=== PATIENT | male | born 1945 | race Caucasian/White ===

== ENCOUNTER 2018-07-23 10:56 | Inpatient (IN) | payer MEDICARE ==
[2018-07-23 11:45] LABS: Bilirubin Negative (Negative); Blood, Urine Negative (Negative); Glucose, Urine (Dipstick) Negative (Negative); Leukocyte Negative (Negative); Nitrite Negative (Negative); Protein, Urine (Dipstick) Negative (Neg-Trace); Urobilinogen 0.2 mg/dL (0.2-1.0)
[2018-07-23 11:47] LABS: Clarity CLEAR (Clear)
[2018-07-23] MEDS ORDERED: Aspirin Chewable 81 MG TAB ONE (12:18)
[2018-07-23] MEDS ORDERED: Nitroglycerin 2% Ointment 1 INCH/1 GM Packet ONE (12:18)
--- NOTE | 2018-07-23 14:03 | PDOC.FPRHP ---
- History of Present Illness Chief Complaint: SOB History of Present Illness: Mr Vaughn is a 73yo male presenting from [facility] with pmh of CAD s/p stent placement on Plavix, HFrEF, BPH with self caths presenting with SOB for the last week. For the past 2 days has had orthopnea and paroxysmal nocturnal dyspnea. Denies diaphoresis. Has had SOB walking up the stairs for the past week and Saturday could hardly make it down the hallway because he was so exhausted. Occasionally has left sided chest pain 1-2/. Denies CP with exertion. Has had good med compliance. 2 days ago completed 7 day course of antibiotics for sinusitis. Has been drinking no more than six 8oz glasses per day. Has been watching sodium intake. Reports weight gain since his last hospitalization. Denies fevers/chills, palpitations, wheezing. CT in [place] ruled out PE, concern for 1.1x2.1 cm mass in [place]. CXR here showed cardiomegaly and interstitial edema and maybe small pleural effusions. BNP elevated to 2600. Pt given lasix. Patient required 2L BNC here. On RA, hypoxic in upper 80s. Hgb 13.1 WBC 10.0 Plt 211 BUN 20 Cr 1.2 GFR 63 UA negative - Allergies/Adverse Reactions Allergies Allergy/AdvReac Type Severity Reaction Status Date / Time No Known Allergies Allergy Unverified 06/21/18 10:18 - Home Medications Medication Instructions Recorded Confirmed Type Lisinopril 20 mg PO BID 06/21/18 07/23/18 History Aspirin Chewable [Aspirin Chewable 81 mg PO DAILY tab 06/30/18 07/23/18 Rx Tablet] Atorvastatin Calcium [Lipitor] 40 mg PO HS #30 tab 06/30/18 07/23/18 Rx Carvedilol [Coreg] 12.5 mg PO BID-WM #120 tab 06/30/18 07/23/18 Rx Clopidogrel Bisulfate [Plavix] 75 mg PO DAILY #30 tab 06/30/18 07/23/18 Rx Finasteride [Proscar] 5 mg PO DAILY #30 tab 06/30/18 07/23/18 Rx Furosemide [Lasix] 20 mg PO DAILY #30 tab 06/30/18 07/23/18 Rx Tamsulosin HCl [Flomax] 0.4 mg PO HS #30 cap 06/30/18 07/23/18 Rx Amiodarone [Cordarone] 200 mg PO BID #60 tab 07/01/18 07/23/18 Rx - History PMHx: BPH s/p transurethral microwave thermotherapy surgery (patient self caths) , hx hematuria,, Iatrogenic perforation of rectum, A.fib with RVR, cardiomyopathy dx in 2012, CHF diagnosed Jun 2017, hx non-sustained Vtach, AAA, HLD PSHx: Surgery on Prostate (july 2017), heart ablation in 2012, 3 vessel coronary s/p bare metal stents Jun 2017 FHx: Insignificant Social: Smoked 25 yrs 2ppd. Quit in 1990, Denies any alcohol use, Denies any illicit drug use PCP - Dr. Jason in [place], [place] Transitions Manager- Dr Corado Urologist- Leela - Review of Systems General: reports: weight/appetite/sleep changes (has had wt gain.), fatigue. denies: fever/chills, night sweats Eyes: denies: eye pain, vision changes ENT: reports: rhinorrhea. denies: nasal congestion Respiratory: reports: cough, shortness of breath, exercise intolerance Cardiovascular: reports: chest pain, edema, paroxysmal nocturnal dyspnea, orthopnea. denies: palpitation Gastrointestinal: denies: nausea, vomiting, diarrhea, constipation, abdominal pain, GI bleeding Genitourinary: denies: polyuria, other (denies hematuria) Skin: denies: rashes, lesions Neurological: denies: numbness, weakness - Vital signs BP: 147/117 HR: 75 RR: 23 Tmax: 98.0 Pox: 94% on 2L Wt: 82.1 kg - Physical Exam Constitutional: NAD, awake, alert and oriented, well developed HEENT: normocephalic and atraumatic, PERRLA, EOMI, MMM, oropharynx clear Neck: supple, no LAD Heart: RRR, normal S1/S2, no murmurs/rubs/gallops -Lungs: fine crackles bases bilat, upper lungs BCTA, no wheezing Abdomen: soft, non-tender, bowel sounds present, no masses/distention, no hernias Musculoskeletal: normal structure, normal tone, ROM grossly normal Neurological: no focal deficit Skin: no rash/lesions, good turgor, capillary refill <2 seconds, no jaundice Heme/Lymphatic: no unusual bruising or bleeding, no purpura Psychiatric: normal mood and affect, good judgment and insight, intact recent and remote memory FMR H&P: Results - Labs Lab results: Urine Ketones Negative mg/dL (Negative) 07/23/18 11:20 Urine Blood Negative (Negative) 07/23/18 11:20 Urine Nitrite Negative (Negative) 07/23/18 11:20 Ur Leukocyte Esterase Negative (Negative) 07/23/18 11:20 - EKG Interpretation EKG: Left anterior fascicular block - Radiology Interpretation CT scan - chest Status: report reviewed by me Additional comment: CT chest (outside hospital) : soft tissue density in left upper lobe posterolateral aspect of the lingula. Measures 1.1x2.1 cm. May represent an area of scar, although mass including malignancy cannot be excluded. Correlate with previous CT chest images or with PET scanning. Also area of increase density in the right lower lobe possible representing area of right lower lobe scar. FMR H&P: A/P - Problem List (1) Acute respiratory failure with hypoxia Current Visit: Yes Status: Acute Code(s): J96.01 - ACUTE RESPIRATORY FAILURE WITH HYPOXIA (2) Acute exacerbation of CHF (congestive heart failure) Current Visit: Yes Status: Acute Code(s): I50.9 - HEART FAILURE, UNSPECIFIED (3) CHF (congestive heart failure) Current Visit: Yes Status: Chronic Code(s): I50.9 - HEART FAILURE, UNSPECIFIED (4) Lung mass Current Visit: Yes Status: Acute Code(s): R91.8 - OTHER NONSPECIFIC ABNORMAL FINDING OF LUNG FIELD (5) Hx of hematuria Current Visit: Yes Status: Chronic Code(s): Z87.448 - PERSONAL HISTORY OF OTHER DISEASES OF URINARY SYSTEM (6) Atrial fibrillation with RVR Current Visit: No Status: Chronic Code(s): I48.91 - UNSPECIFIED ATRIAL FIBRILLATION (7) BPH (benign prostatic hyperplasia) Current Visit: No Status: Chronic Code(s): N40.0 - BENIGN PROSTATIC HYPERPLASIA WITHOUT LOWER URINRY TRACT SYMP (8) Hx of cardiomyopathy Current Visit: No Status: Chronic Code(s): Z86.79 - PERSONAL HISTORY OF OTHER DISEASES OF THE CIRCULATORY SYSTEM (9) Rectal perforation Current Visit: No Status: Chronic Code(s): K63.1 - PERFORATION OF INTESTINE (NONTRAUMATIC) (10) Ventricular tachycardia Current Visit: No Status: Chronic Code(s): I47.2 - VENTRICULAR TACHYCARDIA (11) CAD (coronary artery disease) Current Visit: No Status: Chronic Code(s): I25.10 - ATHSCL HEART DISEASE OF [place] CORONARY ARTERY W/O ANG PCTRS - Plan Acute Hypoxic respiratory failure 2/2 Acute CHF exacerbation -pt presented with SOB and hypoxia, transferred from [facility] ER -CXR showed pulm congestion and cardiomegaly -Given lasix 40 mg IV -CTA ruled out PE, concern for mass in lung -EKG here stable from last visit -Dr. Corado (cards) consulted from ED, appreciate recommendations -Continue lasix BID -Daily weights, strict I/os, fluid restriction -AM CBC/BMP -Echo 06/22/18 EF 35-40% -Increase home lasix to 40 mg PO daily on discharge 3 vessel CAD s/p stent -bare metal stent placed Jun 27 2018 -follows with Dr. Corado -on plavix (until 07/25) and aspirin Concern for lung mass -CT chest ([place] ED) showed soft tissue density in left upper lobe posterolateral aspect of the lingula. -Measures 1.1x2.1 cm. May represent an area of scar, although mass including malignancy cannot be excluded. -Recommend outpatient PET A.fib with RVR -s/p ablation in 2012, pt had Afib last hospitalization with planned cardioversion that was postponed 2/2 hematuria -anticoagulation held for hematuria, rate controlled -continue coreg Nonsustained Vtach -continue amio hx cardiomyopathy HLD -on statin BPH s/p transurethral microwave thermotherapy surgery -patient self caths -[place] in place -continue home flomax Hx hematuria -reports no hematuria currently hx Iatrogenic perforation of rectum HTN -continue home meds Diet: HH, fluid restrict 1800 ml/day DVT ppx: lovenox GI ppx: none Code status: full PCP - Dr. Jason in [place], [place] Transitions Manager- Dr Corado Urologist- Leela FMR H&P: Upper Level - Pertinent history 73M presenting from outside hospital with worsening SOB and RICH for the last several days. He was recently admitted for CP and had PCI with bare metal stent in June. He was diagnosed with new onset HFrEF during last admission and discharged on all appropriate medications. This stay was complicated by hematuria, which effected his antiplatelet and anticoagulation regimen. Since discharge, he has not had any hematuria. He has not f/u with Cardiology or Urology yet. He needs cardioversion for his a-fib and green light vaporization for his BPH. He endorses taking ASA and Plavix as prescribed. He endorses being very winded with exertion along with some mild bilateral lower extremity swelling. Symptoms are also worsened with lying flat. - Pertinent findings 98.3F 57 bpm 92% on 2L 134/85 mmHg Gen: A&Ox3 CV: RRR; no murmurs Pulm: CTA-B Abd: soft; nontender troponin negative x 2 BUN/Cr: 30/1.2 D-Dimer: 1.68 BNP: 2680 TSH: 5.45 CXR: pulmonary vascular congestion EKG: NSR with bifascicular block; unchanged from previous visits UA: wnl CTA: no PE - Plan Date/Time: 07/23/18 1403 I, Oniel Grace, have evaluated this patient and agree with findings/plan as outlined by merchandising internship resident. Pertinent changes/additions are listed here. HFrEF exacerbation: CXR, BNP, and clinical picture consistent with CHF exacerbation. TTE done last month shows an EF of 35-40%. Continue lasix 20mg IV BID and monitor I/O's. He is s/p 40 mg IV at outside facility and is greatly improved. CTA chest negative CAD s/p PCI: continue ASA and Plavix. Cardiology consulted from ED. Hx of hematuria: will monitor for recurrence of symptom and consult Urology as needed. Hx of a-fib: scheduled to undergo OP cardioversion with Dr. Corado. He has been consulted to evaluate. Patient is in NSR at this time with no active CP. BPH: patient self-caths PRN. Continue home medications.
[2018-07-23 15:05] LABS: Troponin I 0.013 ng/mL (< 0.028)
[2018-07-23 16:15] VITALS: BMI 26.3
--- NOTE | 2018-07-23 17:50 | HP ---
HISTORY OF PRESENT ILLNESS: I have examined the patient. I have discussed the case with Dr. Lillian Dominguez, and agree with her assessment and plan. Briefly, Mr. Vaughn is a very pleasant 73-year-old white male patient, who is status post stent placement several weeks ago for coronary artery disease. He states for at least the last 5 to 7 days, he has noticed increased shortness of breath and increased weight gain of 8 pounds. He became short of breath to the point that he presented to a [facility] ER and was subsequently transferred here with acute pulmonary edema. He was given intravenous Lasix in our ER and greatly improved. By the time I saw him, he was much more comfortable and much less short of breath. He denied any chest pain, but was concerned about his 8 pounds weight gain. PHYSICAL EXAMINATION: VITAL SIGNS: His temperature is 98.3, his pulse rate is 60 and regular, respirations are 16. His O2 saturations on 2 L, 92. His blood pressure is 134/85. GENERAL: He is a very pleasant, alert man in no distress. He is oriented x3. EAR, NOSE, AND THROAT: He has moist mucous membranes. No erythema or exudate noted in throat. NECK: Supple with no JVD. CARDIAC: His heart rhythm is irregularly irregular. No gallop or murmur noted. LUNGS: Clear but diminished without rales or wheezes. He is in no distress. He is not using accessory muscles. ABDOMEN: Flat and soft without guarding, rebound, or rigidity. EXTREMITIES: Trace edema. NEUROLOGICAL: No focal deficits. LABORATORY DATA: Pending. ASSESSMENT: 1. Mild pulmonary edema, currently resolved. 2. Coronary artery disease. PLAN: The patient will be admitted. We will adjust his diuretics. Monitor his electrolytes. Monitor his troponin levels and proceed accordingly. Job ID: [id number]
[2018-07-23 18:04] LABS: Troponin I Less than 0.010 ng/mL (< 0.028)
[2018-07-23] MEDS ORDERED: Furosemide 20 MG/2 ML VIAL SLOW IVP SCH (19:45)
[2018-07-23] MEDS ORDERED: Carvedilol 6.25 MG TAB PO SCH (19:45)
--- NOTE | 2018-07-23 20:20 | CON ---
DATE OF CONSULTATION: 07/23/2018 REASON FOR CONSULTATION: Heart failure. PRIMARY SENIOR HARDWARE ENGINEER: Evin Corado MD. HISTORY OF PRESENT ILLNESS: Mr. Vaughn is a pleasant 73-year-old white gentleman, who comes to the hospital for increased shortness of breath. He has a history of ischemic cardiomyopathy with an EF of about 35% to 40%. He had a heart catheterization in June of this year. At which point, he had a stent placed to his OM, and he was placed on optimal medical therapy at that time. His LV function on echo was about 35% to 40% and he was discharge home on heart failure medications. He noticed worsening of his shortness of breath in the last few days, and so he decided to come in for evaluation and was found to be in CHF exacerbation. IV Lasix has already been started, and he states he already feels a little bit better. He does not know how much he has urinated as he has a Wells catheter in, but he had gained about 8 pounds and he already feels better. PAST MEDICAL HISTORY: 1. BPH. 2. Atrial fibrillation, chronic. 3. History of dilated cardiomyopathy since 2012. 4. Nonsustained ventricular tachycardia. 5. Abdominal aortic aneurysm. 6. Hyperlipidemia. PAST SURGICAL HISTORY: 1. Prostate surgery in July of last year. 2. Atrial fibrillation ablation in 2012. 3. Heart catheterization and stenting recently. 4. Status post transurethral microwave thermotherapy. SOCIAL HISTORY: Quit smoking in 1990. Denies alcohol or drugs. OUTPATIENT MEDICATIONS: Include; 1. Lisinopril 20 mg b.i.d. 2. Aspirin 81 a day. 3. Atorvastatin 40 mg at bedtime. 4. Carvedilol 12.5 b.i.d. 5. Plavix 75 mg a day. 6. Finasteride 5 mg a day. 7. Furosemide 20 mg a day. 8. Tamsulosin 0.4 daily. 9. Amiodarone 200 mg b.i.d. ALLERGIES: NO KNOWN DRUG ALLERGIES. REVIEW OF SYSTEMS: 12-point review of systems was done and was all negative unless stated in the history of present illness. PHYSICAL EXAMINATION: VITAL SIGNS: Temperature 98.3, pulse 57, respiratory rate 16, saturating 92% on 2 L nasal cannula, and blood pressure 134/85. GENERAL: Awake, alert, and oriented x3. No distress. HEENT: Normocephalic and atraumatic. NECK: Supple. LUNGS: Lungs have mild crackles at the bases. CARDIOVASCULAR: S1 and S2. No S3 or S4. There is a grade 2/6 systolic murmur at the right upper sternal border. ABDOMEN: Soft. EXTREMITIES: 1+ edema. SKIN: Warm and dry. LABORATORY DATA: Laboratory work was reviewed. Troponin is undetectable. UA is unremarkable. BNP was 2600. DIAGNOSTIC DATA: CT of the chest done in [place], [place], showed no evidence of pulmonary embolus, and there is 1.1 x 2.1 mass in the left upper lung. ASSESSMENT AND PLAN: 1. Acute on chronic systolic heart failure. 2. Lung mass, per Primary Team. 3. History of hematuria, resolved. 4. Atrial fibrillation with rapid ventricular response. 5. Coronary artery disease, stable. PLAN: 1. Heart rate in the 50s to 60s. At this time, would continue home dose of amiodarone and Eliquis. 2. Continue Plavix and low-dose aspirin. Job ID: [id number]
[2018-07-23] MEDS: Tamsulosin HCl 0.4 MG CAP PO SCH (21:16)
[2018-07-23] MEDS: Atorvastatin Calcium 40 MG TAB PO SCH (21:17)
[2018-07-23] MEDS: Lisinopril 20 MG TAB PO SCH (21:18)
[2018-07-23] MEDS: Amiodarone 200 MG TAB PO SCH (21:18)
[2018-07-24 05:29] LABS: #Basophils 0.1 thou/uL (0.0-0.2); #Eosinphils 0.2 thou/uL (0.0-0.7); #Lymphocytes 0.9 thou/uL (1.20-3.40); #Monocytes 0.7 thou/uL (0.11-0.59); #Neutrophils 5.6 thou/uL (1.40-6.50); %Basophils 0.9 % (0.0-1.0); %Lymphocytes 12.2 % (21.0-51.0); %Monocytes 9.8 % (0.0-10.0); %Neutrophils 74.1 % (42.0-75.0); Hemoglobin 12.2 g/dL (14.0-18.0); Mean Corpuscular HGB CONC 31.6 g/dL (32.0-36.0); Mean Corpuscular Hemoglobin 29.4 pg (27.0-31.0); Mean Corpuscular Volume 93.1 fL (78.0-98.0); Mean Platelet Volume 8.8 fL (7.4-10.4); Platelet Count 173 thou/uL (130-400); RBC Distribution Width 13.6 % (11.5-14.5); Red Blood Cell (RBC) Count 4.15 mill/uL (4.70-6.10); White Blood Cell (WBC) Count 7.5 thou/uL (4.8-10.8)
[2018-07-24 05:51] LABS: Anion Gap 11 mmol/L (10-20); BUN (Urea Nitrogen) 27 mg/dL (8.4-25.7); Calc. Creatinine Clearance 77 mL/min (70-130); Calcium 8.3 mg/dL (7.8-10.44); Carbon Dioxide 29 mmol/L (23-31); Chloride 107 mmol/L (98-107); Estimated GFR-MDRD 72; Glucose 85 mg/dL (83-110); Sodium 143 mmol/L (136-145)
[2018-07-24] MEDS ORDERED: Furosemide 20 MG/2 ML VIAL SLOW IVP SCH (06:00)
--- NOTE | 2018-07-24 06:04 | PDOC.FM ---
- Subjective Subjective: Reports he had a coughing spell last night, that improved after dislodging some mucous. SOB is improved this AM. - Objective Vital Signs & Weight: Vital Signs (12 hours) Temp Pulse Resp BP BP Pulse Ox 07/24/18 04:25 97.6 F 91 14 125/83 96 07/23/18 21:18 140/94 H 07/23/18 21:17 140/94 H 07/23/18 19:31 97.4 F L 96 16 140/94 H 95 Weight Weight 83.178 kg Result Diagrams: 07/24/18 05:19 07/24/18 05:19 Phys Exam - Physical Examination Constitutional: NAD HEENT: moist MMs Neck: no nodes, supple Respiratory: no rales, no rhonchi Mild expiratory wheeze at bases with coughing Cardiovascular: no significant murmur Irregularly irregular rhythm Gastrointestinal: soft, non-tender, no distention, positive bowel sounds Musculoskeletal: no edema, pulses present Neurological: non-focal, moves all 4 limbs Psychiatric: normal affect, A&O x 3 Skin: normal turgor, cap refill <2 seconds Dx/Plan (1) Acute respiratory failure with hypoxia Code(s): J96.01 - ACUTE RESPIRATORY FAILURE WITH HYPOXIA Status: Acute (2) Acute exacerbation of CHF (congestive heart failure) Code(s): I50.9 - HEART FAILURE, UNSPECIFIED Status: Acute (3) CHF (congestive heart failure) Code(s): I50.9 - HEART FAILURE, UNSPECIFIED Status: Chronic (4) Lung mass Code(s): R91.8 - OTHER NONSPECIFIC ABNORMAL FINDING OF LUNG FIELD Status: Acute (5) Hx of hematuria Code(s): Z87.448 - PERSONAL HISTORY OF OTHER DISEASES OF URINARY SYSTEM Status : Chronic (6) Atrial fibrillation with RVR Code(s): I48.91 - UNSPECIFIED ATRIAL FIBRILLATION Status: Chronic (7) BPH (benign prostatic hyperplasia) Code(s): N40.0 - BENIGN PROSTATIC HYPERPLASIA WITHOUT LOWER URINRY TRACT SYMP Status: Chronic (8) Hx of cardiomyopathy Code(s): Z86.79 - PERSONAL HISTORY OF OTHER DISEASES OF THE CIRCULATORY SYSTEM Status: Chronic (9) Rectal perforation Code(s): K63.1 - PERFORATION OF INTESTINE (NONTRAUMATIC) Status: Chronic (10) Ventricular tachycardia Code(s): I47.2 - VENTRICULAR TACHYCARDIA Status: Chronic (11) CAD (coronary artery disease) Code(s): I25.10 - ATHSCL HEART DISEASE OF [place] CORONARY ARTERY W/O ANG PCTRS Status: Chronic - Plan Plan: Acute Hypoxic respiratory failure 2/2 Acute CHF exacerbation -pt presented with SOB and hypoxia, transferred from [facility] ER -CXR showed pulm congestion and cardiomegaly -Given lasix 40 mg IV -CTA ruled out PE, concern for mass in lung -EKG here stable from last visit -Dr. Corado (cards) consulted from ED, appreciate recommendations -Continue lasix BID -Daily weights, strict I/os, fluid restriction -AM CBC/BMP -Echo 06/22/18 EF 35-40% -Increase home lasix to 40 mg PO daily on discharge 3 vessel CAD s/p stent -bare metal stent placed Jun 27 2018 -follows with Dr. Corado -continue plavix and aspirin Concern for lung mass -CT chest ([place] ED) showed soft tissue density in left upper lobe posterolateral aspect of the lingula. -Measures 1.1x2.1 cm. May represent an area of scar, although mass including malignancy cannot be excluded. -Recommend outpatient PET A.fib with RVR -s/p ablation in 2012, pt had Afib last hospitalization with planned cardioversion that was postponed 2/2 hematuria -anticoagulation held for hematuria, rate controlled -continue coreg Nonsustained Vtach -continue amio hx cardiomyopathy HLD -on statin BPH s/p transurethral microwave thermotherapy surgery -patient self caths -[place] in place -continue home flomax Hx hematuria -reports no hematuria currently hx Iatrogenic perforation of rectum HTN -continue home meds Concern for COPD - wheezing with cough on exam today - CXR showed concern for COPD - Recommend outpatient spirometry Diet: HH, fluid restrict 1800 ml/day DVT ppx: lovenox GI ppx: none Code status: full PCP - Dr. Jason in [place], [place] Foreign Broadcast Specialist- Dr Corado Urologist- Leela
[2018-07-24] MEDS: Enoxaparin Sodium 40 MG/0.4 ML SYRINGE SC SCH (09:14)
[2018-07-24] MEDS: Aspirin Chewable 81 MG TAB PO SCH (09:14)
[2018-07-24] MEDS: Carvedilol 6.25 MG TAB PO SCH ×2 (09:15→16:15)
[2018-07-24] MEDS: Clopidogrel Bisulfate 75 MG TAB PO SCH (09:15)
[2018-07-24] MEDS: Furosemide 20 MG TAB PO SCH ×2 (09:15→14:47)
[2018-07-24] MEDS: Lisinopril 20 MG TAB PO SCH ×2 (09:16→20:57)
[2018-07-24] MEDS: Amiodarone 200 MG TAB PO SCH ×2 (09:16→20:56)
[2018-07-24] MEDS: Finasteride 5 MG TAB PO SCH (09:16)
--- NOTE | 2018-07-24 16:43 | PRG ---
DATE OF SERVICE: Mr. Vaughn continues to look and feel much better this morning. Lungs sound clear. He was seen in consultation by Dr. Medeiros of the Cardiology Service and we appreciate his input. He is currently recommending that we just continue his current management with amiodarone, Eliquis, Plavix, and low-dose aspirin. We already increased his Lasix to 40 mg twice daily and this will be maintained upon discharge. His labs show a hemoglobin of 12.2 and hematocrit 38.6. His serum potassium is 4.0, and this is on we should maintain throughout his care. His troponins are all negative. Job ID: [id number] MTDD
--- NOTE | 2018-07-24 18:18 | EKG ---
Test Reason : ROUTINE Blood Pressure : / mmHG Vent. Rate : 062 BPM Atrial Rate : 054 BPM P-R Int : 000 ms QRS Dur : 152 ms QT Int : 504 ms P-R-T Axes : 000 -84 -68 degrees QTc Int : 511 ms undetermined rhythm possible junctional with echo beats in a bigeminal pattern Right bundle branch block Left anterior fascicular block Bifascicular block T wave abnormality, consider lateral ischemia or digitalis effect Abnormal ECG When compared with ECG of 23-JUL-2018 11:03, (Unconfirmed) Atrial fibrillation has replaced Sinus rhythm Vent. rate has decreased BY 31 BPM T wave inversion now evident in Lateral leads QT has shortened Confirmed by DR. Robby KENT ([id number]) on 07/24/2018 6:18:14 PM Referred By: Confirmed By:DR. Robby KENT
[2018-07-24] MEDS: Tamsulosin HCl 0.4 MG CAP PO SCH (20:56)
[2018-07-24] MEDS: Atorvastatin Calcium 40 MG TAB PO SCH (20:56)
[2018-07-25 05:21] LABS: #Eosinphils 0.2 thou/uL (0.0-0.7); #Lymphocytes 1.2 thou/uL (1.20-3.40); #Monocytes 0.8 thou/uL (0.11-0.59); #Neutrophils 5.8 thou/uL (1.40-6.50); %Basophils 0.2 % (0.0-1.0); %Eosinophils 3.1 % (0.0-10.0); %Lymphocytes 14.8 % (21.0-51.0); %Monocytes 9.6 % (0.0-10.0); %Neutrophils 72.3 % (42.0-75.0); Hemoglobin 13.1 g/dL (14.0-18.0); Mean Corpuscular HGB CONC 31.4 g/dL (32.0-36.0); Mean Corpuscular Hemoglobin 28.9 pg (27.0-31.0); Platelet Count 177 thou/uL (130-400); RBC Distribution Width 13.6 % (11.5-14.5); Red Blood Cell (RBC) Count 4.55 mill/uL (4.70-6.10); White Blood Cell (WBC) Count 8.1 thou/uL (4.8-10.8)
[2018-07-25 05:39] LABS: Anion Gap 12 mmol/L (10-20); BUN (Urea Nitrogen) 25 mg/dL (8.4-25.7); Calc. Creatinine Clearance 84 mL/min (70-130); Calcium 8.4 mg/dL (7.8-10.44); Carbon Dioxide 27 mmol/L (23-31); Chloride 105 mmol/L (98-107); Estimated GFR-MDRD 82; Glucose 89 mg/dL (83-110); Potassium 3.4 mmol/L (3.5-5.1); Sodium 141 mmol/L (136-145)
[2018-07-25] MEDS ORDERED: Diabetic Tussin 200 MG/10 ML UDCUP PO PRN (06:35)
--- NOTE | 2018-07-25 06:36 | PDOC.FM ---
- Subjective Subjective: Pt feels well this AM, says cough has improved. Overall feeling better and now on RA. - Objective Vital Signs & Weight: Vital Signs (12 hours) Temp Pulse Resp BP BP Pulse Ox 07/25/18 04:05 98.2 F 84 17 142/94 H 91 L 07/24/18 20:57 125/67 07/24/18 20:20 91 L 07/24/18 19:15 98.2 F 85 16 125/67 91 L Weight Weight 80.876 kg I&O: 07/23/18 07/24/18 07/25/18 06:59 06:59 06:59 Intake Total 240 1370 Output Total 1350 2170 Balance -1110 -800 Result Diagrams: 07/25/18 04:52 07/25/18 04:52 Phys Exam - Physical Examination Constitutional: NAD Respiratory: no rhonchi +wheezing, no rhonchi Cardiovascular: RRR, no significant murmur Gastrointestinal: soft, non-tender, no distention Musculoskeletal: no edema, pulses present Neurological: non-focal, moves all 4 limbs Psychiatric: normal affect, A&O x 3 Skin: normal turgor, cap refill <2 seconds Dx/Plan (1) Acute respiratory failure with hypoxia Code(s): J96.01 - ACUTE RESPIRATORY FAILURE WITH HYPOXIA Status: Acute (2) Acute exacerbation of CHF (congestive heart failure) Code(s): I50.9 - HEART FAILURE, UNSPECIFIED Status: Acute (3) CHF (congestive heart failure) Code(s): I50.9 - HEART FAILURE, UNSPECIFIED Status: Chronic (4) Lung mass Code(s): R91.8 - OTHER NONSPECIFIC ABNORMAL FINDING OF LUNG FIELD Status: Acute (5) Hx of hematuria Code(s): Z87.448 - PERSONAL HISTORY OF OTHER DISEASES OF URINARY SYSTEM Status : Chronic (6) Atrial fibrillation with RVR Code(s): I48.91 - UNSPECIFIED ATRIAL FIBRILLATION Status: Chronic (7) BPH (benign prostatic hyperplasia) Code(s): N40.0 - BENIGN PROSTATIC HYPERPLASIA WITHOUT LOWER URINRY TRACT SYMP Status: Chronic (8) Hx of cardiomyopathy Code(s): Z86.79 - PERSONAL HISTORY OF OTHER DISEASES OF THE CIRCULATORY SYSTEM Status: Chronic (9) Rectal perforation Code(s): K63.1 - PERFORATION OF INTESTINE (NONTRAUMATIC) Status: Chronic (10) Ventricular tachycardia Code(s): I47.2 - VENTRICULAR TACHYCARDIA Status: Chronic (11) CAD (coronary artery disease) Code(s): I25.10 - ATHSCL HEART DISEASE OF [place] CORONARY ARTERY W/O ANG PCTRS Status: Chronic - Plan Plan: Acute Hypoxic respiratory failure 2/2 Acute CHF exacerbation -pt presented with SOB and hypoxia, transferred from [facility] ER -CXR showed pulm congestion and cardiomegaly -CTA ruled out PE, concern for mass in lung -EKG here stable from last visit -Dr. Corado (cards) consulted from ED, appreciate recommendations -Continue lasix BID -Daily weights, strict I/os, fluid restriction -AM CBC/BMP -Echo 06/22/18 EF 35-40% -Increase home lasix to 40 mg PO daily on discharge -Now on RA 3 vessel CAD s/p stent -bare metal stent placed Jun 27 2018 -follows with Dr. Corado -continue plavix and aspirin Concern for lung mass -CT chest ([place] [facility]) showed soft tissue density in left upper lobe posterolateral aspect of the lingula. -Measures 1.1x2.1 cm. May represent an area of scar, although mass including malignancy cannot be excluded. -Recommend outpatient PET A.fib with RVR -s/p ablation in 2012, pt had Afib last hospitalization with planned cardioversion that was postponed 2/2 hematuria -anticoagulation held for hematuria, rate controlled -continue coreg Nonsustained Vtach -continue amio hx cardiomyopathy HLD -on statin BPH s/p transurethral microwave thermotherapy surgery -patient self caths -[place] in place -continue home flomax Hx hematuria -reports no hematuria currently hx Iatrogenic perforation of rectum HTN -continue home meds Concern for COPD - wheezing with cough on exam today - CXR showed concern for COPD - Recommend outpatient spirometry Diet: HH, fluid restrict 1800 ml/day DVT ppx: lovenox GI ppx: none Code status: full Dispo: plan to discharge to home today. Recommend outpatient spirometry. PCP - Dr. Jason in [place], [place] Transport Rn- Dr Corado Urologist- Leela
[2018-07-25] MEDS ORDERED: Potassium Chloride 20 MEQ TAB PO SCH (06:45)
[2018-07-25] MEDS: Enoxaparin Sodium 40 MG/0.4 ML SYRINGE SC SCH (08:25)
[2018-07-25] MEDS: Aspirin Chewable 81 MG TAB PO SCH (08:25)
[2018-07-25] MEDS: Amiodarone 200 MG TAB PO SCH (08:25)
[2018-07-25] MEDS: Finasteride 5 MG TAB PO SCH (08:25)
[2018-07-25] MEDS: Furosemide 20 MG TAB PO SCH ×2 (08:25→13:01)
[2018-07-25] MEDS: Carvedilol 6.25 MG TAB PO SCH (08:25)
[2018-07-25] MEDS: Clopidogrel Bisulfate 75 MG TAB PO SCH (08:25)
[2018-07-25] MEDS: Lisinopril 20 MG TAB PO SCH (08:25)
--- NOTE | 2018-07-25 11:57 | PRG ---
DATE OF SERVICE: 07/25/2018 SUBJECTIVE: Mr. Vaughn continues to look and feel well and is anxious to go home. We have increased his Lasix to 40 mg daily. This is to maintain him euvolemic with no further evidence of pulmonary congestion. We are also urging him to undergo some PFTs to possibly diagnose COPD. In the event, we will send him home on Spiriva and rescue inhaler in addition to his cardiac medications. Job ID: [id number]
[2018-07-25 15:27] VITALS: BP 112/65; TEMP 97.9
--- NOTE | 2018-07-26 15:34 | EKG ---
Test Reason : Blood Pressure : / mmHG Vent. Rate : 093 BPM Atrial Rate : 093 BPM P-R Int : 192 ms QRS Dur : 158 ms QT Int : 450 ms P-R-T Axes : 000 -68 014 degrees QTc Int : 559 ms Normal sinus rhythm Right bundle branch block Left anterior fascicular block Bifascicular block Abnormal ECG No ST elevation/[place] Confirmed by JOSH HALL M.D. ([id number]), editor magazine [employer]HI [employer] ([id number]) on 07/26/2018 3:34:05 PM Referred By: Confirmed By:JOSH HALL M.D.
--- NOTE | 2018-07-28 04:15 | DIS ---
DATE OF ADMISSION: 07/23/2018 DATE OF DISCHARGE: 07/25/2018 RESIDENT: Lillian Dominguez MD. CONSULTS: Dr. Medeiros on 07/23/2018, Cardiology. PROCEDURES: EKG on 07/23/2018, stable left anterior fascicular block with QTc of 511 milliseconds, right bundle-branch block, and bifascicular block. PRIMARY DIAGNOSES: 1. Acute hypoxic respiratory failure secondary to acute congestive heart failure exacerbation. 2. Acute congestive heart failure exacerbation. SECONDARY DIAGNOSES: 1. Three-vessel coronary artery disease, status post stent. 2. Concern for lung mass. 3. Atrial fibrillation with rapid ventricular response. 4. Nonsustained ventricular tachycardia. 5. History of cardiomyopathy. 6. Hyperlipidemia. 7. Benign prostatic hyperplasia, status post transurethral microwave thermotherapy surgery. 8. History of hematuria. 9. History of iatrogenic perforation of rectum. 10. Hypertension. 11. Concern for chronic obstructive pulmonary disease. DISCHARGE MEDICATIONS: 1. Amiodarone 200 mg p.o. b.i.d. 2. Spiriva Respimat 2 inhalation daily. 3. Albuterol sulfate 2 puffs q.4 hours as needed for shortness of breath and/or wheezing. 4. Lisinopril 20 mg p.o. b.i.d. 5. Aspirin 81 mg p.o. daily. 6. Atorvastatin 40 mg p.o. at bedtime. 7. Carvedilol 12.5 mg p.o. b.i.d. with meals. 8. Clopidogrel 75 mg p.o. daily. 9. Finasteride 5 mg p.o. daily. 10. Flomax 0.4 mg p.o. at bedtime. 11. Phenazopyridine 97.5 mg p.o. t.i.d. p.r.n. for urinary issues. 12. Lactobacillus probiotic 2 capsules p.o. daily. 13. Diphenhydramine 25 mg p.o. as needed for itching. 14. Ibuprofen and diphenhydramine 2 tablets p.o. as needed for pain. 15. Cataplex B 1250 two tablets oral b.i.d. 16. Cardio-Plus 2080 two tablets p.o. b.i.d. 17. Cataplex 2 tablets p.o. b.i.d. 18. Cyruta Plus 3330 two tablets p.o. b.i.d. 19. Min-Roy 5625 two tablets p.o. b.i.d. 20. Furosemide 40 mg p.o. daily. DISCONTINUED MEDICATIONS: 1. Amiodarone 400 mg p.o. t.i.d. 2. Furosemide 20 mg p.o. HISTORY OF PRESENT ILLNESS/HOSPITAL COURSE: Mr. Vaughn is a 73-year-old male presented as a transfer from [facility] with past medical history of coronary artery disease, status post stent placement, on Plavix with heart failure with reduced ejection fraction and BPH, does self-cath, presents for shortness of breath for the last week. For the past 2 days, he had orthopnea and paroxysmal nocturnal dyspnea. Denies diaphoresis. He was becoming more short of breath walking up the stairs over the past week, and stated now he could hardly make it down the hallway without feeling exhausted. Occasionally has left-sided chest pain that is 1 to 2/10. He denied chest pain with exertion. He has had good medication compliance. Two days prior, he completed a 7-day course of antibiotics for sinusitis. He continued drinking no more than six 8-ounce glasses per day. He has been watching his fluid intake, reports weight gain since last hospitalization. Denies fevers, chills, palpitations, or wheezing. A CT in [place] ruled out PE, but there was a concern for a 1 x 2 cm mass in the left upper lobe. Chest x-ray here showed cardiomegaly and interstitial edema and maybe some small pleural effusions. BNP was elevated to 2600. The patient was given Lasix. The patient required 2 L by nasal cannula here. On room air, he was hypoxic in the upper 80s. UA was negative. White count was normal. Hemoglobin was 13.1. Acute hypoxic respiratory failure, secondary to CHF exacerbation. The patient was fluid restricted. Dr. Corado, Cardiology, was consulted for EP. The patient's Lasix increased to 40 mg p.o. daily. Concern for lung mass. A CT of the chest showed soft tissue density in the left upper lobe, posterolateral aspect of the lingula. It measures 1.1 x 2.1 cm. It may represent an area of scar, although mass including malignancy cannot be excluded. Outpatient PET scan is recommended. Atrial fibrillation with RVR. The patient is status post ablation in 2012, the patient had atrial fibrillation in last hospitalization when cardioversion was postponed secondary to hematuria and inability to tolerate anticoagulation. He is currently rate controlled with Coreg that was continued. Continue amiodarone. Concern for COPD. The patient had some wheezing with cough on exam. Chest x-ray also showed concern for COPD. The patient was started on Spiriva daily as well as p.r.n. albuterol inhaler. Recommend outpatient spirometry. DISPOSITION: Stable. DISCHARGE INSTRUCTIONS: LOCATION: Home. DIET: Heart healthy, salt restricted. Fluid restricted to 1800 mL per day. ACTIVITY: As tolerated. FOLLOWUP: 1. Follow up with Dr. Corado on 08/25/2018 at 1:00 p.m. 2. Follow up with Dr. Dickinson on 08/12/2018 at 10:45 a.m. 3. Follow up with [facility] on 07/28/2018 at 9: 00 a.m. 4. Follow up with cardiac rehab on 07/31/2018 at 2:00 p.m. Job ID: [id number] MTDKat
== END 2018-07-25 16:22 | disposition home or self-care (01) | DRG 291 ==
LOC: ERS 10:56 → ERHOLD 14:01 → 2NO 15:46
PROVIDERS: ADMIT Family Medicine; ATTEND Family Medicine
DX: I11.0 Hypertensive heart disease with heart failure (principal); J96.01 Acute respiratory failure with hypoxia; I45.2 Bifascicular block; I47.2 Ventricular tachycardia; I50.23 Acute on chronic systolic (congestive) heart failure; J44.9 Chronic obstructive pulmonary disease, unspecified; E78.5 Hyperlipidemia, unspecified; I25.10 Atherosclerotic heart disease of native coronary artery without angina pectoris; N40.0 Benign prostatic hyperplasia without lower urinary tract symptoms; I48.2 Chronic atrial fibrillation; I25.5 Ischemic cardiomyopathy; R91.8 Other nonspecific abnormal finding of lung field; Z95.5 Presence of coronary angioplasty implant and graft; Z87.891 Personal history of nicotine dependence; Z79.02 Long term (current) use of antithrombotics/antiplatelets; Z79.82 Long term (current) use of aspirin; Z79.899 Other long term (current) drug therapy; Z98.890 Other specified postprocedural states
CPT/HCPCS: 36415; 80048; 81003; 84484; 85025; 87086; 93005; 93010; 93798; 94640; 94760; J1650; J1940; J7620

== ENCOUNTER 2018-09-29 14:03 | Outpatient (CLI) | payer MEDICARE, OTHER ==
[2018-09-29 15:24] LABS: #Basophils 0.1 thou/uL (0.0-0.2); #Eosinphils 0.2 thou/uL (0.0-0.7); #Lymphocytes 1.4 thou/uL (1.20-3.40); #Monocytes 0.8 thou/uL (0.11-0.59); #Neutrophils 6.6 thou/uL (1.40-6.50); %Basophils 0.6 % (0.0-1.0); %Eosinophils 2.2 % (0.0-10.0); %Lymphocytes 15.9 % (21.0-51.0); %Monocytes 8.4 % (0.0-10.0); Mean Corpuscular Hemoglobin 27.2 pg (27.0-31.0); Mean Corpuscular Volume 87.7 fL (78.0-98.0); Mean Platelet Volume 9.1 fL (7.4-10.4); Platelet Count 225 thou/uL (130-400); RBC Distribution Width 15.5 % (11.5-14.5); Red Blood Cell (RBC) Count 4.78 mill/uL (4.70-6.10)
[2018-09-29 15:48] LABS: Anion Gap 13 mmol/L (10-20); BUN (Urea Nitrogen) 27 mg/dL (8.4-25.7); Calc. Creatinine Clearance 0 mL/min (70-130); Calcium 8.7 mg/dL (7.8-10.44); Carbon Dioxide 31 mmol/L (23-31); Chloride 102 mmol/L (98-107); Estimated GFR-MDRD 54; Glucose 101 mg/dL (83-110); Potassium 3.4 mmol/L (3.5-5.1); Sodium 143 mmol/L (136-145)
--- NOTE | 2018-10-01 11:55 | EKG ---
Test Reason : Blood Pressure : / mmHG Vent. Rate : 073 BPM Atrial Rate : 089 BPM P-R Int : 000 ms QRS Dur : 174 ms QT Int : 498 ms P-R-T Axes : 000 258 076 degrees QTc Int : 548 ms Atrial fibrillation Right bundle branch block Abnormal ECG When compared with ECG of 24-JUL-2018 00:33, Previous ECG has undetermined rhythm, needs review Left anterior fascicular block is no longer Present Nonspecific T wave abnormality no longer evident in Inferior leads T wave inversion no longer evident in Lateral leads Confirmed by DR. Luther MOREIRA ([id number]) on 10/01/2018 11:54:38 AM Referred By: GINO Confirmed By:DR. Luther MOREIRA
== END 2018-09-29 14:04 | disposition home or self-care (01) ==
LOC: LABBT 14:03
PROVIDERS: ATTEND Internal Medicine Cardiovascular Disease
DX: Z01.818 Encounter for other preprocedural examination (principal)
CPT/HCPCS: 80048; 85025; 93005; 93010

== ENCOUNTER 2018-09-30 06:54 | Day surgery (SDC) | payer MEDICARE, OTHER ==
[2018-09-29 14:14] VITALS: BMI 24.8
[2018-09-30] MEDS ORDERED: Fentanyl 100 MCG/2 ML VIAL ONE (10:08)
[2018-09-30] MEDS ORDERED: PROPOFOL 20 ML ONE (10:12)
[2018-09-30] MEDS ORDERED: PROPOFOL 200 MG/20 ML VIAL ONE (13:02)
--- NOTE | 2018-09-30 16:42 | OP ---
DATE OF PROCEDURE: 09/30/2018 PROCEDURE PERFORMED: Transesophageal echocardiogram. INDICATIONS: A 73-year-old gentleman with paroxysmal atrial fibrillation. DESCRIPTION OF PROCEDURE: The patient was taken to the PACU. The patient was sedated by Anesthesiology. Transesophageal probe was placed into the distal esophagus and stomach. Echocardiographic images were obtained. The transesophageal probe was removed. FINDINGS: 1. Moderate decrease in left systolic function. 2. Left atrial enlargement. 3. Left ventricle was mildly dilated. 4. Normal mitral and aortic valves. 5. Moderate mitral regurgitation. 6. [id number] aortic regurgitation. 7. Mild tricuspid regurgitation. 8. No thrombus is noted in the left atrium or left atrial appendage. 9. Atherosclerotic debris in the descending aorta. IMPRESSION: No formed thrombus in the left atrium or left atrial appendage. Please call my office. Job ID: [id number]
--- NOTE | 2018-09-30 18:55 | OP ---
DATE OF PROCEDURE: 09/30/18 SURGEON: Evin Corado M.D. PROCEDURE: Direct current cardioversion. The patient remained sedated after undergoing transesophageal echo by Dr. Ga. With 200 joules o f synchronized energy, he returned to sinus bradycardia with heart rates in the 40s.
== END 2018-09-30 13:55 | disposition home or self-care (01) ==
LOC: CCL 06:54
PROVIDERS: ATTEND Internal Medicine Cardiovascular Disease
PROC: B245ZZ4 Ultrasonography of Left Heart, Transesophageal (ICD-10-PCS; principal; 2018-09-30)
PROC: 5A2204Z Restoration of Cardiac Rhythm, Single (ICD-10-PCS; 2018-09-30)
DX: I48.0 Paroxysmal atrial fibrillation (principal); I25.10 Atherosclerotic heart disease of native coronary artery without angina pectoris; I42.8 Other cardiomyopathies; I47.1 Supraventricular tachycardia; I48.3 Typical atrial flutter; Z79.01 Long term (current) use of anticoagulants; Z79.84 Long term (current) use of oral hypoglycemic drugs; Z79.899 Other long term (current) drug therapy; Z95.5 Presence of coronary angioplasty implant and graft
CPT/HCPCS: 92960; 93005; 93010; 93312; J2704; J3010

== ENCOUNTER 2019-01-18 15:32 | Emergency (ER) | payer MEDICARE, OTHER ==
[2019-01-18 16:14] LABS: Bilirubin Negative (Negative); Blood, Urine Small (Negative); Clarity Hazy (Clear); Glucose, Urine (Dipstick) Negative (Negative); Leukocyte Large (Negative); Nitrite Negative (Negative); Protein, Urine (Dipstick) Trace mg/dL (Neg-Trace); Urobilinogen 0.2 mg/dL (Less than 2)
[2019-01-18 16:17] LABS: WBC/HPF 21-50 HPF (0-3)
[2019-01-18 16:18] LABS: Bacteria/HPF 3+ HPF (None Seen); Squamous Epithelial 0-3 HPF (0-3)
== END 2019-01-18 16:39 | disposition home or self-care (01) ==
LOC: SCSER 15:32
DX: N39.0 Urinary tract infection, site not specified (principal); I25.10 Atherosclerotic heart disease of native coronary artery without angina pectoris; I48.91 Unspecified atrial fibrillation; E78.5 Hyperlipidemia, unspecified; E78.00 Pure hypercholesterolemia, unspecified; I47.1 Supraventricular tachycardia; Z87.891 Personal history of nicotine dependence
CPT/HCPCS: 51701; 81003; 81015; 87086

== ENCOUNTER 2019-04-11 14:31 | Emergency (ER) | payer MEDICARE, OTHER ==
[2019-04-11 15:01] LABS: Bilirubin Negative (Negative); Blood, Urine Moderate (Negative); Clarity Cloudy (Clear); Glucose, Urine (Dipstick) Negative (Negative); Leukocyte Large (Negative); Nitrite Negative (Negative); Protein, Urine (Dipstick) Trace mg/dL (Neg-Trace); Urobilinogen 0.2 mg/dL (Less than 2)
[2019-04-11 15:06] LABS: Bacteria/HPF 2+ HPF (None Seen); Squamous Epithelial 0-3 HPF (0-3); WBC/HPF 21-50 HPF (0-3)
== END 2019-04-11 15:18 | disposition home or self-care (01) ==
LOC: SCSER 14:31
DX: N30.00 Acute cystitis without hematuria (principal); I10 Essential (primary) hypertension; Z87.891 Personal history of nicotine dependence; Z79.899 Other long term (current) drug therapy
CPT/HCPCS: 81003; 81015; 87077; 87086; 87186; 99283